=== PATIENT | male | born 1945 | race Caucasian/White ===

== ENCOUNTER 2019-05-20 15:22 | Inpatient (IN) | payer OTHER ==
[2019-05-20] MEDS ORDERED: HYDROmorphone 1 MG/ML 1 ML SYRINGE IVP STA (15:47)
[2019-05-20] MEDS ORDERED: SODIUM CHLORIDE 0.9% 1,000 ML IV ONE (16:01)
[2019-05-20] MEDS ORDERED: PIPERACILLIN-TAZOBACTAM 3.375 GM in SODIUM CHLORIDE 0.9% 100 ML IVPB STA (16:10)
[2019-05-20] MEDS ORDERED: NALOXONE 0.4 MG/ML 1 ML VIAL IV PRN (16:12)
[2019-05-20] MEDS ORDERED: HYDROmorphone 0.5 MG/0.5 ML SYRINGE IVP PRN (16:12)
[2019-05-20] MEDS ORDERED: ONDANSETRON 4 MG/2 ML VIAL IVP PRN (16:12)
--- NOTE | 2019-05-20 16:12 | ED ---
Abdominal Pain HPI - General Source: patient, RN notes reviewed Mode of arrival: ambulatory Limitations: no limitations <Danny Camacho - Last Filed: 05/20/19 16:20> <Jesu Baker - Last Filed: 05/20/19 16:26> - General Chief Complaint: Abdominal Pain Stated Complaint: abdominal pain Time Seen by Provider: 05/20/19 15:42 - History of Present Illness Initial Comments: 73-year-old male presents emergency department as a transfer for [facility]. Patient states that he woke up around 2 AM with severe pain. Patient states this started after eating some cookies. Patient states the pain is in epigastric and right upper quadrant. Patient has CT which showed questionable appendicitis. Patient also had some evidence of gallstones. Patient was sent down here for further evaluation, surgical evaluation. Patient reports no fevers or chills no back pain this time. Patient has a history of bowel resecti on but states he cannot remember the surgeon's name does not currently see the surgeon. Patient denies any dysuria, hematuria, diarrhea constipation. (Danny Camacho) - Related Data Allergies Allergy/AdvReac Type Severity Reaction Status Date / Time nitroglycerin Allergy Unknown Verified 05/20/19 15:39 Review of Systems ROS Other: All systems not noted in ROS Statement are negative. <Danny Camacho - Last Filed: 05/20/19 16:20> ROS Other: All systems not noted in ROS Statement are negative. <Jesu Baker - Last Filed: 05/20/19 16:26> ROS Statement: Those systems with pertinent positive or pertinent negative responses have been documented in the HPI. Past Medical History Past Medical History: GERD/Reflux, Hyperlipidemia, Hypertension History of Any Multi-Drug Resistant Organisms: Unobtainable Additional Past Surgical History / Comment(s): divertculitis sx Past Psychological History: No Psychological Hx Reported Smoking Status: Former smoker Past Alcohol Use History: None Reported Past Drug Use History: None Reported <Danny Camacho - Last Filed: 05/20/19 16:20> General Exam Limitations: no limitations General appearance: alert, in no apparent distress Neck exam: Present: normal inspection. Absent: tenderness, meningismus, lymphadenopathy Respiratory exam: Present: normal lung sounds bilaterally. Absent: respiratory distress, wheezes, rales, rhonchi, stridor Cardiovascular Exam: Present: regular rate, normal rhythm, normal heart sounds. Absent: systolic murmur, diastolic murmur, rubs, gallop, clicks GI/Abdominal exam: Present: soft, tenderness (Moderate right upper quadrant epigastric tenderness), normal bowel sounds. Absent: distended, guarding, rebound, rigid Extremities exam: Present: other (Pedal pulses equal bilaterally equal color equal strength the lower extremities) <Danny Camacho - Last Filed: 05/20/19 16:20> Course <Jesu Baker - Last Filed: 05/20/19 16:26> Vital Signs 05/20/19 15:31 Temperature 98.0 F Pulse Rate 89 Respiratory 18 Rate Blood Pressure 173/103 O2 Sat by Pulse 100 Oximetry - Reevaluation(s) Reevaluation #1: 05/20/19 16:26 PA supervision: I proceeded [id number] evaluation the patient did present from [facility] with complaints of abdominal pain initially thought to be appendicitis patient however has tenderness palpation of the right upper quadrant and midepigastric region. Patient will be admitted I did discuss case Dr. Galloway. Ultrasound be ordered antibiotics started. Clinically does appear to be more gallbladder related. I did review the material presented from the sending hospital. (Jesu Baker) Medical Decision Making <Danny Camacho - Last Filed: 05/20/19 16:20> - Medical Decision Making Case discussed with Dr. Galloway who recommends repeat labs, ultrasound, antibiotics and admission at this time (Danny Camacho) Disposition <Danny Camacho - Last Filed: 05/20/19 16:20> <Jesu Baker - Last Filed: 05/20/19 16:26> Clinical Impression: Abdominal pain, Cholecystitis, Cholelithiases Disposition: ADMITTED IP TO THIS [facility] Condition: Fair Referrals: Clint Chan, PAC [REFERRING] - 1-2 days
[2019-05-20] MEDS: SODIUM CHLORIDE 0.9% 1,000 ML IV SCH (16:45)
[2019-05-20 16:50] LABS: Basophils % (A) 0 %; Eosinophils # (A) 0.1 k/uL (0-0.7); Eosinophils % (A) 1 %; HGB 15.5 gm/dL (13.0-17.5); Lymphocytes # (A) 0.9 k/uL (1.0-4.8); Lymphocytes % (A) 9 %; MCH 30.9 pg (25.0-35.0); MCHC 34.5 g/dL (31.0-37.0); MCV 89.6 fL (80.0-100.0); Mean Platelet Volume 7.3; Monocytes # (A) 0.7 k/uL (0-1.0); Monocytes % (A) 6 %; Neutrophils # (A) 8.8 k/uL (1.3-7.7); Neutrophils % (A) 82 %; Platelet Count 183 k/uL (150-450); RBC 5.02 m/uL (4.30-5.90); RDW 13.4 % (11.5-15.5); WBC 10.6 k/uL (3.8-10.6)
--- NOTE | 2019-05-20 16:53 | US ---
EXAMINATION TYPE: US gallbladder DATE OF EXAM: 05/20/2019 COMPARISON: NONE CLINICAL HISTORY: pain. Pt states pain, N&V EXAM MEASUREMENTS: Liver Length: 14.7 cm Gallbladder Wall: 0.3 cm CBD: 0.5 cm Right Kidney: 13.2 x 6.1 x 5.7 cm Pancreas: Obscured by bowel gas Liver: CYst right inferior lobe= 0.9 x 0.6 cm Gallbladder: Distended, multiple gallstones, wall thickness upper limits of normal Evidence for sonographic Hung's sign: No CBD: wnl Right Kidney: Cyst lower pole= 6.4 x 5.8 x 5.5 cm IMPRESSION: Numerous gallstones. No dilated ducts. Small hepatic cyst. Right renal cortical cyst.
[2019-05-20 16:56] LABS: ALT 27 U/L (4-49); AST 39 U/L (17-59); African American GFR (CKD) >90 (>60 ml/min/1.73 sqM); Albumin 4.7 g/dL (3.5-5.0); Alkaline Phosphatase 99 U/L (38-126); Anion Gap 10 mmol/L; Blood Urea Nitrogen 14 mg/dL (9-20); Calcium 9.3 mg/dL (8.4-10.2); Carbon Dioxide 24 mmol/L (22-30); Chloride 100 mmol/L (98-107); Glucose 128 mg/dL (74-99); Non-African American GFR(CKD) >90 (>60 ml/min/1.73 sqM); Potassium 4.1 mmol/L (3.5-5.1); Sodium 134 mmol/L (137-145); Total Protein 7.4 g/dL (6.3-8.2)
[2019-05-20] MEDS: FLUTICASONE 50MCG/SPRAY NASAL 16GM EA NOSTRIL PRN (18:28)
[2019-05-20] MEDS: HYDROmorphone 1 MG/ML 1 ML SYRINGE IVP PRN ×2 (18:42→22:09)
[2019-05-20] MEDS: PIPERACILLIN-TAZOBACTAM 3.375 GM in SODIUM CHLORIDE 0.9% 100 ML IVPB SCH (23:26)
[2019-05-21] MEDS: HYDROmorphone 1 MG/ML 1 ML SYRINGE IVP PRN ×6 (01:06→21:12)
[2019-05-21] MEDS: FLUTICASONE 50MCG/SPRAY NASAL 16GM EA NOSTRIL PRN (07:40)
[2019-05-21] MEDS: PIPERACILLIN-TAZOBACTAM 3.375 GM in SODIUM CHLORIDE 0.9% 100 ML IVPB SCH ×2 (07:40→16:49)
[2019-05-21] MEDS: PANTOPRAZOLE 40 MG/10 ML VIAL IV SCH (07:40)
[2019-05-21] MEDS ORDERED: ONDANSETRON 4 MG/2 ML VIAL IVP PRN (08:12)
[2019-05-21] MEDS ORDERED: ACETAMINOPHEN TAB 325 MG TAB PO PRN (08:14)
[2019-05-21] MEDS: HEPARIN SODIUM,PORCINE 5,000 UNIT/ML 1 ML VIAL SQ SCH ×2 (08:59→21:11)
--- NOTE | 2019-05-21 09:05 | P.GSHP ---
History of Present Illness H&P Date: 05/21/19 CHIEF COMPLAINT: Abdominal pain HISTORY OF PRESENT ILLNESS: 73 -year-old male who was transferred to [facility] from [facility] secondary to abdominal pain. Patient reports epigastric pain that began Monday morning at 2am. He states the pain radiated to his back and shoulder. Denies nausea or vomiting. Denies diarrhea or constipation. Denies history of gallbladder disease in the past. PAST MEDICAL HISTORY: See list. PAST SURGICAL HISTORY: See list. SOCIAL HISTORY: No illicit drug use. REVIEW OF SYSTEMS: CONSTITUTIONAL: Denies fever or chills. HEENT: Denies blurred vision, vision changes, or eye pain. Denies hemoptysis CARDIOVASCULAR: Denies chest pain or pressure. RESPIRATORY: No shortness of breath. GASTROINTESTINAL: Refer to HPI for pertinent findings HEMATOLOGIC: Denies bleeding disorders. GENITOURINARY: Denies any blood in urine. SKIN: Denies pruitis. Denies rash. PHYSICAL EXAM: VITAL SIGNS: Reviewed. GENERAL: Well-developed in no acute distress. HEENT: No sclera icterus. Extraocular movements grossly intact. Moist buccal mucosa. Head is atraumatic, normocephalic. ABDOMEN: Soft. Nondistended. Nontender. Old surgical scar to abdomen. NEUROLOGIC: Alert and oriented. Cranial nerves II through XII grossly intact. LABORATORY DATA: WBC 10.6. Hemoglobin 15.5. Platelet count 183. IMAGING: Gallbladder ultrasound: Numerous gallstones. No dilated ducts. Small hepatic cyst. Distended gallbladder. Wall thickness upper limits of normal. ASSESSMENT: 1. Abdominal pain 2. Cholelithiasis PLAN: NPO. IV fluids. IV antibiotics. Consult Dr. Alfaro for medical management. Contreras lópez to undergo laparoscopic cholecystectomy today with Dr. Galloway Nurse practitioner note has been reviewed by physician. Signing provider agrees with the documented findings, assessment, and plan of care. 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 Past Anesthesia/Blood Transfusion Reactions: No Reported Reaction Past Psychological History: No Psychological Hx Reported Smoking Status: Former smoker Past Alcohol Use History: Rare Past Drug Use History: None Reported - Past Family History Father Family Medical History: No Reported History Mother Family Medical History: No Reported History Medications and Allergies Home Medications Medication Instructions Recorded Confirmed Type Atorvastatin [Lipitor] 80 mg PO HS 05/20/19 05/20/19 History Diltiazem HCl [Diltiazem HCl 24Hr 180 mg PO DAILY 05/20/19 05/20/19 History ER] Fluticasone Nasal [place] [Flonase 2 spr EA NOSTRIL DAILY PRN 05/20/19 05/20/19 History Nasal [place]] Hydrochlorothiazide [Hydrodiuril] 25 mg PO DAILY 05/20/19 05/20/19 History Omeprazole 20 mg PO BID 05/20/19 05/20/19 History metFORMIN HCL 500 mg PO DAILY 05/20/19 05/20/19 History traZODone HCL 100 mg PO HS 05/20/19 05/20/19 History Allergies Allergy/AdvReac Type Severity Reaction Status Date / Time nitroglycerin Allergy Unknown Verified 05/20/19 16:56 Surgical - Exam Vital Signs Temp Pulse Resp BP Pulse Ox 98.0 F 89 18 173/103 100 05/20/19 15:31 05/20/19 15:31 05/20/19 15:31 05/20/19 15:31 05/20/19 15:31 Results - Labs 05/20/19 16:40 05/20/19 16:40 Abnormal Lab Results - Last 24 Hours (Table) 05/20/19 05/20/19 Range/Units 16:40 16:40 Neutrophils # 8.8 H (1.3-7.7) k/uL Lymphocytes # 0.9 L (1.0-4.8) k/uL Sodium 134 L (137-145) mmol/L Creatinine 0.61 L (0.66-1.25) mg/dL Glucose 128 H (74-99) mg/dL Diabetes panel 05/20/19 Range/Units 16:40 Sodium 134 L (137-145) mmol/L Potassium 4.1 (3.5-5.1) mmol/L Chloride 100 (98-107) mmol/L Carbon Dioxide 24 (22-30) mmol/L BUN 14 (9-20) mg/dL Creatinine 0.61 L (0.66-1.25) mg/dL Glucose 128 H (74-99) mg/dL Calcium 9.3 (8.4-10.2) mg/dL AST 39 (17-59) U/L ALT 27 (4-49) U/L Alkaline Phosphatase 99 (38-126) U/L Total Protein 7.4 (6.3-8.2) g/dL Albumin 4.7 (3.5-5.0) g/dL Calcium panel 05/20/19 Range/Units 16:40 Calcium 9.3 (8.4-10.2) mg/dL Albumin 4.7 (3.5-5.0) g/dL Pituitary panel 05/20/19 Range/Units 16:40 Sodium 134 L (137-145) mmol/L Potassium 4.1 (3.5-5.1) mmol/L Chloride 100 (98-107) mmol/L Carbon Dioxide 24 (22-30) mmol/L BUN 14 (9-20) mg/dL Creatinine 0.61 L (0.66-1.25) mg/dL Glucose 128 H (74-99) mg/dL Calcium 9.3 (8.4-10.2) mg/dL Adrenal panel 05/20/19 Range/Units 16:40 Sodium 134 L (137-145) mmol/L Potassium 4.1 (3.5-5.1) mmol/L Chloride 100 (98-107) mmol/L Carbon Dioxide 24 (22-30) mmol/L BUN 14 (9-20) mg/dL Creatinine 0.61 L (0.66-1.25) mg/dL Glucose 128 H (74-99) mg/dL Calcium 9.3 (8.4-10.2) mg/dL Total Bilirubin 1.0 (0.2-1.3) mg/dL AST 39 (17-59) U/L ALT 27 (4-49) U/L Alkaline Phosphatase 99 (38-126) U/L Total Protein 7.4 (6.3-8.2) g/dL Albumin 4.7 (3.5-5.0) g/dL
[2019-05-21] MEDS: SODIUM CHLORIDE 0.9% 1,000 ML IV SCH (11:21)
[2019-05-21] MEDS ORDERED: FLUTICASONE 50MCG/SPRAY NASAL 16GM EA NOSTRIL PRN (13:30)
--- NOTE | 2019-05-21 13:33 | P.CONS ---
History of Present Illness - Reason for Consult recommendations regarding the antihypertensive and diabetic medications - History of Present Illness patient is admitted for cholelithiasis. Patient will undergo cholecystectomy tomorrow. Patient is transferred from [facility] patient was complaining of right upper quadrant abdominal pain which completely resolved at this time. Patient had a low-grade fever for which patient is Zosyn patient denied any cough patient denied any dysuria or urinary increased urinary frequency.she is bit hyponatremic patient also takeshydrochlorothiazide for blood pressure at home.patient denied nausea vomiting. Review of Systems REVIEW OF SYSTEMS: CONSTITUTIONAL: No fever, no malaise, no fatigue. HEENT: No recent visual problems or hearing problems. Denied any sore throat. CARDIOVASCULAR: No chest pain, orthopnea, PND, no palpitations, no syncope. PULMONARY: No shortness of breath, no cough, no hemoptysis. GASTROINTESTINAL: No diarrhea, no nausea, no vomiting. NEUROLOGICAL: No headaches, no weakness, no numbness. HEMATOLOGICAL: Denies any bleeding or petechiae. GENITOURINARY: Denies any burning micturition, frequency, or urgency. MUSCULOSKELETAL/RHEUMATOLOGICAL: Denies any joint pain, swelling, or any muscle pain. ENDOCRINE: Denies any polyuria or polydipsia. The rest of the 14-point review of systems is negative. 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 Past Anesthesia/Blood Transfusion Reactions: No Reported Reaction Past Psychological History: No Psychological Hx Reported Smoking Status: Former smoker Past Alcohol Use History: Rare Past Drug Use History: None Reported - Past Family History Father Family Medical History: No Reported History Mother Family Medical History: No Reported History Medications and Allergies Home Medications Medication Instructions Recorded Confirmed Type Atorvastatin [Lipitor] 80 mg PO HS 05/20/19 05/20/19 History Diltiazem HCl [Diltiazem HCl 24Hr 180 mg PO DAILY 05/20/19 05/20/19 History ER] Fluticasone Nasal [place] [Flonase 2 spr EA NOSTRIL DAILY PRN 05/20/19 05/20/19 History Nasal [place]] Hydrochlorothiazide [Hydrodiuril] 25 mg PO DAILY 05/20/19 05/20/19 History Omeprazole 20 mg PO BID 05/20/19 05/20/19 History metFORMIN HCL 500 mg PO DAILY 05/20/19 05/20/19 History traZODone HCL 100 mg PO HS 05/20/19 05/20/19 History Allergies Allergy/AdvReac Type Severity Reaction Status Date / Time nitroglycerin Allergy Unknown Verified 05/20/19 16:56 Physical Exam Vitals: Vital Signs Temp Pulse Pulse Resp BP BP Pulse Ox 05/21/19 11:52 100.1 F H 96 17 147/82 94 L 05/21/19 04:54 99.3 F 110 H 16 142/74 94 L 05/20/19 20:24 99.1 F 96 18 152/84 96 05/20/19 17:22 98.4 F 89 18 164/84 96 05/20/19 16:30 84 18 161/96 93 L 05/20/19 15:31 98.0 F 89 18 173/103 100 Intake and Output 05/20/19 05/21/19 05/21/19 22:59 06:59 14:59 Intake Total 300 400 360 Balance 300 400 360 Intake: Intake, IV Titration 300 400 Amount Piperacillin-Tazobactam 3 300 .375 gm In Sodium Chloride 0.9% 100 ml @ 200 mls/hr IVPB ONCE [facility] Rx#:[id number] Piperacillin-Tazobactam 3 100 .375 gm In Sodium Chloride 0.9% 100 ml @ 25 mls/hr IVPB Q8HR [facility] Rx# :[id number] Sodium Chloride 0.9% 1, 300 000 ml @ 75 mls/hr IV . [id number] [facility] Rx#:[id number] Oral 360 Other: Voiding Method Toilet Weight 86.183 kg PHYSICAL EXAMINATION: GENERAL: The patient is alert and oriented x3, not in any acute distress. Well developed, well nourished. HEENT: Pupils are round and equally reacting to light. EOMI. No scleral icterus. No conjunctival pallor. Normocephalic, atraumatic. No pharyngeal erythema. No thyromegaly. CARDIOVASCULAR: S1 and S2 present. No murmurs, rubs, or gallops. PULMONARY: Chest is clear to auscultation, no wheezing or crackles. ABDOMEN: Soft, nontender, nondistended, normoactive bowel sounds. No palpable organomegaly. MUSCULOSKELETAL: No joint swelling or deformity. EXTREMITIES: No cyanosis, clubbing, or pedal edema. NEUROLOGICAL: Gross neurological examination did not reveal any focal deficits. SKIN: No rashes. Results CBC & Chem 7: 05/20/19 16:40 05/20/19 16:40 Labs: Abnormal Lab Results - Last 24 Hours (Table) 05/20/19 05/20/19 Range/Units 16:40 16:40 Neutrophils # 8.8 H (1.3-7.7) k/uL Lymphocytes # 0.9 L (1.0-4.8) k/uL Sodium 134 L (137-145) mmol/L Creatinine 0.61 L (0.66-1.25) mg/dL Glucose 128 H (74-99) mg/dL Assessment and Plan Plan: -cholelithiasis: Patient will undergo cholecystotomy tomorrow -Fever probably related to gallbladder disease patient is already on Zosyn which will be continued patient doesn't have any UTI or pneumonia symptoms at this time -gastroesophageal reflux disease -Hypertension hold off on hydrochlorothiazide because of hyponatremia and to prevent perioperative protection Cardizem resumed.
[2019-05-21] MEDS: DILTIAZEM CD 180 MG CAP.ER.24H PO SCH (14:39)
[2019-05-21] MEDS: ATORVASTATIN 80 MG TAB PO SCH (21:11)
[2019-05-21] MEDS: traZODone HCL 100 MG TAB PO SCH (21:11)
[2019-05-22] MEDS: SODIUM CHLORIDE 0.9% 1,000 ML IV SCH ×3 (00:08→16:18)
[2019-05-22] MEDS: PIPERACILLIN-TAZOBACTAM 3.375 GM in SODIUM CHLORIDE 0.9% 100 ML IVPB SCH ×4 (00:11→23:07)
[2019-05-22] MEDS: HEPARIN SODIUM,PORCINE 5,000 UNIT/ML 1 ML VIAL SQ SCH ×2 (07:37→19:49)
[2019-05-22] MEDS: PANTOPRAZOLE 40 MG/10 ML VIAL IV SCH (07:59)
[2019-05-22] MEDS: HYDROmorphone 1 MG/ML 1 ML SYRINGE IVP PRN ×4 (07:59→22:18)
[2019-05-22] MEDS: DILTIAZEM CD 180 MG CAP.ER.24H PO SCH (08:00)
[2019-05-22] MEDS ORDERED: SODIUM CHLORIDE 0.9% 1,000 ML IV ONE (08:36)
[2019-05-22] MEDS ORDERED: HEPARIN SODIUM,PORCINE 5,000 UNIT/ML 1 ML VIAL SQ ONE (08:55)
[2019-05-22] MEDS ORDERED: PROPOFOL 10 MG/ML 20 ML VIAL IV ONE (09:21)
[2019-05-22] MEDS ORDERED: GLYCOPYRROLATE 0.2 MG/ML 2 ML VIAL ONE (09:21)
[2019-05-22] MEDS ORDERED: LIDOCAINE 1% INJ 10MG/ML (20 ML MDV) ONE (09:21)
[2019-05-22] MEDS ORDERED: ROCURONIUM BROMIDE 10 MG/ML 5 ML VIAL IV ONE (09:21)
[2019-05-22] MEDS ORDERED: SUCCINYLCHOLINE CHLORIDE 100 MG/5 ML SYR IV ONE (09:21)
[2019-05-22] MEDS ORDERED: fentaNYL (PF) 50 MCG/ML 2 ML AMP ONE (09:21)
[2019-05-22] MEDS ORDERED: PHENYLEPHRINE-0.9% NACL SYG 1 MG/10 ML SYRINGE ONE (09:21)
[2019-05-22] MEDS ORDERED: NEOSTIGMINE 1 MG/ML 10 ML VIAL ONE (09:21)
[2019-05-22] MEDS ORDERED: MIDAZOLAM 2 MG/2 ML VIAL ONE (09:21)
[2019-05-22] MEDS ORDERED: BUPIVACAIN-EPI 0.25%-1:200,000 30 ML VIAL IJ ONE (09:59)
[2019-05-22] MEDS ORDERED: LACTATED RINGERS 1,000 ML IV ONE (10:18)
--- NOTE | 2019-05-22 10:42 | P.OP ---
Date of Procedure: 05/22/19 Preoperative Diagnosis: Cholecystitis Cholelithiasis Postoperative Diagnosis: Cholecystitis Cholelithiasis Procedure(s) Performed: Laparoscopic cholecystectomy Anesthesia: YAMILETH Surgeon: Ron Galloway Estimated Blood Loss (ml): 10 Pathology: other (5 gallbladder) Condition: stable Disposition: PACU Description of Procedure: The patient was placed on the operating table. The patient received a general endotracheal tube anesthesia. The patients abdomen was prepped and draped in the usual sterile fashion. Through an infraumbilical stab incision, the fascia of the anterior abdominal wall was grasped with a pair of Kochers and then the Veress needle was placed in the peritoneal cavity. Position of the Veress needle was confirmed with positive drop test. The abdomen was then insufflated. After adequate insufflation, the 10 mm trocar was placed in the p eritoneal cavity. Following this the laparoscope was placed in the peritoneal cavity. The patient was placed in the head-up, right side up position and then a 5 mm trocar was placed in the right lateral and right subcostal position under direct visualization. A 8 mm trocar was placed in the epigastric position. The gallbladder was grasped in the fundus and infundibulum. Traction on the ga llbladder was placed in the lateral and the cephalad positions. The triangle of Calot was visualized.. The cystic duct was bluntly dissected until the union of the cystic duct and common bile duct was seen. A critical view of safety was achieved. The cystic duct was then divided and sealed with the Harmonic scissors. A PDS Endoloop was then placed throughout the cystic duct stump. The cystic artery divided and sealed with the Harmonic scissors. The gallbladder was then removed from the liver bed using Harmonic scissors. The gallbladder was then extracted through the epigastric port site. Operative field was checked for any bleeding spots and Harmonic scissors was used to coagulate the liver bed. The abdomen was irrigated. The trocars were removed. The skin was closed using interrupted 3-0 Vicryl suture. Dermabond dressing were applied. The patient tolerated the procedure well.
--- NOTE | 2019-05-22 11:04 | P.PN ---
Subjective Progress Note Date: 05/22/19 Principal diagnosis: patient is admitted for cholelithiasis. Patient will undergo cholecystectomy tomorrow. Patient is transferred from [facility] patient was complaining of right upper quadrant abdominal pain which completely resolved at this time. Patient had a low-grade fever for which patient is Zosyn patient denied any cough patient denied any dysuria or urinary increased urinary frequency.she is bit hyponatremic patient also takes hydrochlorothiazide for blood pressure at home.patient denied nausea vomiting. We were consulted for recommendations regarding antihypertensives and diabetic medications. 05/22/2019 This is a 73-year-old male that was recently admitted for cholelithiasis. Patient is scheduled to undergo cholecystectomy with Dr. Galloway today. No acute overnight issues. Will await report. Currently no reports of chest pain, shortness of breath, or palpitations. Patient is afebrile. No reports of nausea or vomiting and patient is nothing by mouth for the procedure. Will continue to follow along with surgery. Objective - Vital Signs Vital signs: Vital Signs Temp 97.1 F L 05/22/19 10:39 Pulse 91 05/22/19 10:45 Resp 16 05/22/19 10:45 BP 136/77 05/22/19 10:45 Pulse Ox 95 05/22/19 10:45 Intake & Output 05/21/19 05/22/19 05/22/19 18:59 06:59 18:59 Intake Total 910 900 600 Output Total 5 Balance 910 900 595 Intake: IV 600 Intake, IV Titration 550 900 Amount Piperacillin-Tazobactam 3 100 150 .375 gm In Sodium Chloride 0.9% 100 ml @ 25 mls/hr IVPB Q8HR [facility] Rx# :[id number] Sodium Chloride 0.9% 1, 450 750 000 ml @ 75 mls/hr IV . [id number] Rx#:[id number] Oral 360 Output: Estimated Blood Loss 5 Other: Voiding Method Toilet Toilet # Voids 5 - Exam GENERAL: The patient is alert and oriented x3, not in any acute distress. Well developed, well nourished. HEENT: Pupils are round and equally reacting to light. EOMI. No scleral icterus. No conjunctival pallor. Normocephalic, atraumatic. No pharyngeal erythema. No thyromegaly. CARDIOVASCULAR: S1 and S2 present. No murmurs, rubs, or gallops. PULMONARY: Chest is clear to auscultation, no wheezing or crackles. ABDOMEN: Soft, nontender, nondistended, normoactive bowel sounds. No palpable organomegaly. MUSCULOSKELETAL: No joint swelling or deformity. EXTREMITIES: No cyanosis, clubbing, or pedal edema. NEUROLOGICAL: Gross neurological examination did not reveal any focal deficits. SKIN: No rashes. - Labs CBC & Chem 7: 05/20/19 16:40 05/20/19 16:40 Labs: Microbiology - Last 24 Hours (Table) 05/20/19 16:40 Blood Culture - Preliminary Blood No Growth after 24 hours Assessment and Plan Assessment: -cholelithiasis: Patient scheduled to undergo cholecystectomy this morning -Fever probably related to gallbladder disease patient is already on Zosyn which will be continued patient doesn't have any UTI or pneumonia symptoms at this time. Patient is afebrile today. -gastroesophageal reflux disease -Hypertension: hold off on hydrochlorothiazide because of hyponatremia and to prevent perioperative hypotension. Cardizem resumed. Will monitor vital signs and labs closely.
[2019-05-22] MEDS ORDERED: HYDROmorphone 0.5 MG/0.5 ML SYRINGE IVP ONE (11:24)
[2019-05-22] MEDS: traZODone HCL 100 MG TAB PO SCH (19:48)
[2019-05-22] MEDS: ATORVASTATIN 80 MG TAB PO SCH (19:48)
[2019-05-23] MEDS: PANTOPRAZOLE 40 MG/10 ML VIAL IV SCH (09:16)
[2019-05-23] MEDS: HEPARIN SODIUM,PORCINE 5,000 UNIT/ML 1 ML VIAL SQ SCH (09:17)
[2019-05-23] MEDS: PIPERACILLIN-TAZOBACTAM 3.375 GM in SODIUM CHLORIDE 0.9% 100 ML IVPB SCH (09:17)
[2019-05-23] MEDS: DILTIAZEM CD 180 MG CAP.ER.24H PO SCH (09:17)
[2019-05-23 09:34] LABS: Basophils % (A) 0 %; Eosinophils # (A) 0.1 k/uL (0-0.7); Eosinophils % (A) 1 %; HCT 40.1 % (39.0-53.0); HGB 13.9 gm/dL (13.0-17.5); Lymphocytes # (A) 0.9 k/uL (1.0-4.8); Lymphocytes % (A) 9 %; MCH 31.6 pg (25.0-35.0); MCHC 34.7 g/dL (31.0-37.0); MCV 91.2 fL (80.0-100.0); Mean Platelet Volume 7.7; Monocytes # (A) 0.8 k/uL (0-1.0); Monocytes % (A) 8 %; Neutrophils # (A) 7.4 k/uL (1.3-7.7); Neutrophils % (A) 79 %; Platelet Count 143 k/uL (150-450); RBC 4.39 m/uL (4.30-5.90); RDW 13.3 % (11.5-15.5); WBC 9.4 k/uL (3.8-10.6)
[2019-05-23 09:51] LABS: African American GFR (CKD) >90 (>60 ml/min/1.73 sqM); Anion Gap 6 mmol/L; Blood Urea Nitrogen 12 mg/dL (9-20); Calcium 8.1 mg/dL (8.4-10.2); Carbon Dioxide 26 mmol/L (22-30); Chloride 101 mmol/L (98-107); Glucose 154 mg/dL (74-99); Non-African American GFR(CKD) 90 (>60 ml/min/1.73 sqM); Potassium 3.5 mmol/L (3.5-5.1); Sodium 133 mmol/L (137-145)
--- NOTE | 2019-05-23 10:17 | P.DS ---
Providers Date of admission: 05/22/19 08:16 Expected date of discharge: 05/23/19 Attending physician: Ron Galloway Consults: 05/21/19 08:11 Consult Physician Routine Consulting Provider: Dheeraj Alfaro Consult Reason/Comments: medical management Do you want consulting provider notified?: Yes Primary care physician: [facility] Course: 73 -year-old male who was transferred to [facility] from [facility] secondary to abdominal pain. Patient reports epigastric pain that began Monday morning at 2am. He states the pain radiated to his back and shoulder. Denies nausea or vomiting. Denies diarrhea or constipation. Denies history of gallbladder disease in the past. Gallbladder ultrasound: Numerous gallstones. No dilated ducts. Small hepatic cyst. Distended gallbladder. Wall thickness upper limits of normal. Patient underwent laparoscopic cholecystectomy with Dr. Galloway on 05/22/2019. Patient is doing well postoperatively without any immediate complications. He is tolerating diet without nausea or vomiting. Pain is controlled on oral medications. He is stable for discharge home today. Please see EMR for further Hospital course details. Discharge Diagnosis: 1. Abdominal pain 2. Cholelithiasis 3. Acute cholecystitis Nurse practitioner note has been reviewed by physician. Signing provider agrees with the documented findings, assessment, and plan of care. Patient Condition at Discharge: Stable Plan - Discharge Summary Discharge Rx Participant: Yes New Discharge Prescriptions: New Hydrocodone/Acetaminophen [[place] 5-325] 1 tab PO Q6HR PRN #10 tab PRN Reason: Pain No Action traZODone HCL 100 mg PO HS Omeprazole 20 mg PO BID metFORMIN HCL 500 mg PO DAILY Hydrochlorothiazide [Hydrodiuril] 25 mg PO DAILY Fluticasone Nasal [place] [Flonase Nasal [place]] 2 spr EA NOSTRIL DAILY PRN PRN Reason: Allergy Symptoms Diltiazem HCl [Diltiazem HCl 24Hr ER] 180 mg PO DAILY Atorvastatin [Lipitor] 80 mg PO HS Discharge Medication List Atorvastatin [Lipitor] 80 mg PO HS 05/20/19 [History] Diltiazem HCl [Diltiazem HCl 24Hr ER] 180 mg PO DAILY 05/20/19 [History] Fluticasone Nasal [place] [Flonase Nasal [place]] 2 spr EA NOSTRIL DAILY PRN 05/20/19 [History] Hydrochlorothiazide [Hydrodiuril] 25 mg PO DAILY 05/20/19 [History] Omeprazole 20 mg PO BID 05/20/19 [History] metFORMIN HCL 500 mg PO DAILY 05/20/19 [History] traZODone HCL 100 mg PO HS 05/20/19 [History] Hydrocodone/Acetaminophen [[place] 5-325] 1 tab PO Q6HR PRN #10 tab 05/22/19 [Rx] Follow up Appointment(s)/Referral(s): Clint Chan PAC [REFERRING] - 1-2 days Ron Galloway MD [STAFF PHYSICIAN] - 1 Week Activity/Diet/Wound Care/Special Instructions: No driving while taking [place] No lifting over 10 pounds You may shower. No soaking or tub baths Very light activity until you are reevaluated at your follow up appointment with your surgeon
[2019-05-23 11:29] VITALS: BP 156/77; PULSE 60; RESP 18; TEMP 98.3
--- NOTE | 2019-05-23 12:54 | P.PN ---
Subjective Progress Note Date: 05/23/19 Principal diagnosis: patient is admitted for cholelithiasis. Patient will undergo cholecystectomy tomorrow. Patient is transferred from [facility] patient was complaining of right upper quadrant abdominal pain which completely resolved at this time. Patient had a low-grade fever for which patient is Zosyn patient denied any cough patient denied any dysuria or urinary increased urinary frequency.she is bit hyponatremic patient also takes hydrochlorothiazide for blood pressure at home.patient denied nausea vomiting. We were consulted for recommendations regarding antihypertensives and diabetic medications. 05/22/2019 This is a 73-year-old male that was recently admitted for cholelithiasis. Patient is scheduled to undergo cholecystectomy with Dr. Galloway today. No acute overnight issues. Will await report. Currently no reports of chest pain, shortness of breath, or palpitations. Patient is afebrile. No reports of nausea or vomiting and patient is nothing by mouth for the procedure. Will continue to follow along with surgery. 05/23/2019 Patient is seen and evaluated and follow-up today status post cholecystectomy yesterday. No acute overnight issues. Repeat labs within normal limits today. Patient Is tolerating diet with no reports of abdominal pain, nausea, vomiting, or discomfort. Patient has remained afebrile. No reports of chest pain, shortness of breath, or palpitations. Patient was on oxygen status post surgery and has been weaned to room air as he does not normally wear oxygen. Discussed with the patient about continuing to use incentive spirometer at least 10 times every hour while awake in the outpatient setting. Patient states he is being discharged today. Will continue to follow with surgery during hospitalization. Objective - Vital Signs Vital signs: Vital Signs Temp 98.3 F 05/23/19 11:19 Pulse 60 05/23/19 11:19 Resp 18 05/23/19 11:19 BP 156/77 05/23/19 11:19 Pulse Ox 93 L 05/23/19 11:19 Intake & Output 05/22/19 05/23/19 05/23/19 18:59 06:59 18:59 Intake Total 1500 Output Total 5 Balance 1495 Intake: IV 800 Intake, IV Titration 700 Amount Piperacillin-Tazobactam 3 100 .375 gm In Sodium Chloride 0.9% 100 ml @ 25 mls/hr IVPB Q8HR [facility] Rx# :[id number] Sodium Chloride 0.9% 1, 600 000 ml @ 75 mls/hr IV . [id number] [facility] Rx#:[id number] Output: Estimated Blood Loss 5 Other: Voiding Method Toilet Toilet # Voids 5 2 - Exam GENERAL: The patient is alert and oriented x3, not in any acute distress. Well developed, well nourished. HEENT: Pupils are round and equally reacting to light. EOMI. No scleral icterus. No conjunctival pallor. Normocephalic, atraumatic. No pharyngeal erythema. No thyromegaly. CARDIOVASCULAR: S1 and S2 present. No murmurs, rubs, or gallops. PULMONARY: Chest is clear to auscultation, no wheezing or crackles. ABDOMEN: Soft, nontender, nondistended, normoactive bowel sounds. No palpable organomegaly. Status post cholecystectomy small incisions are dry and intact with Dermabond noted. MUSCULOSKELETAL: No joint swelling or deformity. EXTREMITIES: No cyanosis, clubbing, or pedal edema. NEUROLOGICAL: Gross neurological examination did not reveal any focal deficits. SKIN: No rashes. - Labs CBC & Chem 7: 05/23/19 09:09 05/23/19 09:09 Labs: Abnormal Lab Results - Last 24 Hours (Table) 05/23/19 05/23/19 Range/Units 09:09 09:09 Plt Count 143 L (150-450) k/uL Lymphocytes # 0.9 L (1.0-4.8) k/uL Sodium 133 L (137-145) mmol/L Glucose 154 H (74-99) mg/dL Calcium 8.1 L (8.4-10.2) mg/dL Microbiology - Last 24 Hours (Table) 05/20/19 16:40 Blood Culture - Preliminary Blood No Growth after 48 hours Assessment and Plan Assessment: -cholelithiasis: Status post cholecystectomy postop day #1. Patient tolerating diet and passing gas. -Fever probably related to gallbladder disease. Patient was given Zosyn. patient doesn't have any UTI or pneumonia symptoms at this time. Patient has remained afebrile over 24 hours. -gastroesophageal reflux disease -Hypertension: Patient to resume home medications. Repeat labs within normal limits. Plan: Repeat labs this morning within normal limits. Continue current medications, management, and symptomatic treatment. Patient has been up to the bathroom with no difficulty and is passing gas. He is tolerating diet with no increase in abdominal discomfort. Patient continues to use incentive spirometer and educated about using it 10 times every hour while awake even in the outpatient setting. Patient verbalized understanding. Patient will be resumed on home antihypertensive medications. To follow-up with surgery along with primary care provider in the outpatient setting. Patient states he is going home today and surgery has cleared the patient.
--- NOTE | 2019-05-27 13:22 | CDI ---
Documentation Clarification Form Date: 05/27/19 From: Marla Orosco CCS Phone: If you have a question about this query, please contact Tori Tong, Primary Therapist at [phone] between 8am and 5pm. Admit Date: 05/22/19 Discharge Date:05/23/19 Patient Name: Ruddy Tomas Visit Number: [id number] ATTENTION: The Clinical Documentation Specialists (CDI) and [facility] Coding Staff appreciate your assistance in clarifying documentation. Please respond to the clarification below the line at the bottom and electronically sign. The CDI & [facility] Coding staff will review the response and follow-up if needed. Please note: Queries are made part of the Legal Health Record. If you have any questions, please contact the author of this message via ITS. Dear Dr. Galloway, The final diagnosis of the pathology report states: Chronic active cholecystitis with transmural extension, mucosal erosion and cholelithiasis. Documentation states: Acute cholecystitis, Cholelithiasis Patient history/risk factors: GERD, Hepatic cyst, HTN Clinical Indicators: Fever, Epigastric pain Radiology: Numerous gallstones.No dilated ducts.Small hepatic cyst.Right renal cortical cyst. Treatment: Laparoscopic cholecystectomy In your professional opinion, do you agree with the pathology report specifying cholecystitis as chronic? Chronic cholecystitis Acute cholecystitis Acute/Chronic cholecystitis Other (please specify) Unable to determine Unable to determine MTDD
== END 2019-05-23 12:51 | disposition home or self-care (01) | DRG 418 ==
LOC: EC 15:22 → 5NMEDONC 16:25 → OBSVTOIN 05-22 08:16 → 5NMEDONC 05-22 20:19
PROVIDERS: ADMIT Surgery; ATTEND Surgery
PROC: 0FT44ZZ Resection of Gallbladder, Percutaneous Endoscopic Approach (ICD-10-PCS; principal; 2019-05-22 09:15)
DX: K80.00 Calculus of gallbladder with acute cholecystitis without obstruction (principal); E87.1 Hypo-osmolality and hyponatremia; K76.89 Other specified diseases of liver; K21.9 Gastro-esophageal reflux disease without esophagitis; I10 Essential (primary) hypertension; E78.5 Hyperlipidemia, unspecified; G89.29 Other chronic pain; M54.9 Dorsalgia, unspecified; Z79.899 Other long term (current) drug therapy; Z79.84 Long term (current) use of oral hypoglycemic drugs; Z87.891 Personal history of nicotine dependence; Z90.49 Acquired absence of other specified parts of digestive tract; Z88.8 Allergy status to other drugs, medicaments and biological substances
CPT/HCPCS: 76705; 80048; 80053; 83690; 85025; 87040; 88304; 96365; 96375; 99285

== ENCOUNTER → 2022-10-26 | Outpatient (CLI) | payer OTHER ==
--- NOTE | 2022-10-28 12:21 | MR ---
EXAMINATION TYPE: MR lumbar spine wo con DATE OF EXAM: 10/26/2022 COMPARISON: None HISTORY: Chronic lower back pain, RLE radiculopathy. CONTRAST: 0 mL intravenous Gadavist. TECHNIQUE: Multiplanar, multisequence images of the lumbar spine were acquired. FINDINGS: Cord terminates at the L2 level. Disc heights are preserved. Vertebral body heights are preserved. There is disc desiccation throughou t the lumbar spine. No spondylolisthesis is evident. L5-S1: There is minimal posterior central protrusion with anterior thecal sac compression. No AP spin al canal stenosis present. Neural foramen are patent. Mild facet degenerative change is present. L4-5: There is broad-based disc bulge with anterior thecal sac flattening. No AP spinal canal stenosi s is present. There is increased signal on T2-weighted sequences within the mid disc space compatible with an annular tear. Mild facet degenerative changes are present. L3-4: Mild right paracentral and right lateral disc bulge is present with minimal anterior thecal sac compression. This comes in close approximation with the exiting right L4 nerve roots. Correlate with radicular symptoms. Foramen appears patent. L2-3, L1-2, T12-L1: These levels appear normal without focal disc herniation significant disc bulge s unruly canal stenosis or neural foraminal stenosis. Large cyst is present on the inferior pole right kidney. IMPRESSION: 1. Annular tear L4-5 the disc. 2. Mild disc bulging present L3-4 through L5-S1 discussed above. 3. Correlate with right L4 radicular symptoms from minimal disc bulging at L3-4..
== END | disposition home or self-care (01) ==
LOC: RADMRIMAIN 10:47
DX: M51.16 Intervertebral disc disorders with radiculopathy, lumbar region (principal); M51.17 Intervertebral disc disorders with radiculopathy, lumbosacral region
CPT/HCPCS: 72148

== ENCOUNTER → 2023-12-21 | Outpatient (CLI) | payer OTHER ==
[2023-12-21 15:27] LABS: Basophils # (A) 0.06 X 10*3/uL (0.00-0.10); Basophils % (A) 0.9 %; Eosinophils # (A) 0.15 X 10*3/uL (0.04-0.35); Eosinophils % (A) 2.2 %; HCT 45.6 % (39.6-50.0); HGB 15.1 g/dL (13.0-17.0); Lymphocytes # (A) 1.44 X 10*3/uL (0.90-5.00); Lymphocytes % (A) 21.3 %; MCH 30.9 pg (27.0-32.0); MCHC 33.1 g/dL (32.0-37.0); MCV 93.3 FL (80.0-97.0); Mean Platelet Volume 9.9 FL (9.5-12.2); Monocytes # (A) 0.61 X 10*3/uL (0.20-1.00); NRBC Per 100 WBC 0 X 10*3/uL (0.00-0.01); Neutrophils # (A) 4.47 X 10*3/uL (1.80-7.70); Neutrophils % (A) 66.3 %; Platelet Count 199 X 10*3/uL (140-440); RBC 4.89 X 10*6/uL (4.40-5.60); RDW 13.2 % (11.5-14.5); WBC 6.75 X 10*3/uL (4.50-10.00)
[2023-12-21 15:37] LABS: Blood Urea Nitrogen 21.6 mg/dL (9.0-27.0); Calcium 9.4 mg/dL (8.7-10.3); Carbon Dioxide 25.9 mmol/L (21.6-31.8); Chloride 101 mmol/L (96-109); Glucose 164 mg/dL (70-110); Potassium 4.4 mmol/L (3.5-5.5); Sodium 139 mmol/L (135-145)
[2023-12-21 17:34] LABS: INR 1.06 sec (0.93-1.11); Prothrombin Time 11.4 sec (9.9-11.9)
== END | disposition home or self-care (01) ==
LOC: LABWHC1 09:44
PROVIDERS: ATTEND Orthopaedic Surgery
CPT/HCPCS: 36415; 80048; 85025; 85610; 86850; 86900; 86901; 87070; 93005

== ENCOUNTER → 2024-03-25 | Outpatient (CLI) | payer OTHER | END | disposition home or self-care (01) | LOC: LABPAT 10:58 | PROVIDERS: ATTEND Orthopaedic Surgery | DX: Z01.812 Encounter for preprocedural laboratory examination (principal); M16.11 Unilateral primary osteoarthritis, right hip; Z22.322 Carrier or suspected carrier of Methicillin resistant Staphylococcus aureus | CPT/HCPCS: 86850; 86900; 86901; 87070 ==

== ENCOUNTER 2024-04-04 08:15 | Day surgery (SDC) | payer OTHER ==
--- NOTE | 2024-04-04 00:39 | HP ---
HISTORY AND PHYSICAL DATE OF SURGERY: 04/04/2024. HISTORY OF PRESENT ILLNESS: Ruddy Tomas is a 78-year-old gentleman seen with symptomatic right hip osteoarthritis. We discussed options regarding treatment. He elected to proceed with direct anterior right total hip arthroplasty. Consent regarding the procedure obtained. Medical clearance was provided by Zahra Peralta NP. PAST MEDICAL HISTORY: Hypertension, hyperlipidemia, gastroesophageal reflux disease. PAST SURGICAL HISTORY: Noncontributory. DAILY MEDICATIONS: 1. Cardizem. 2. Hydrochlorothiazide. 3. Meloxicam. 4. Omeprazole. ALLERGIES: None. SOCIAL HISTORY: Denies tobacco use. PHYSICAL EVALUATION OF THE RIGHT HIP: He has limited range of motion with severe pain. Positive impingement sign. Straight- leg raise negative. Distal neurovascular exam is intact. IMAGING STUDIES: Radiographs of the right hip revealed severe osteoarthritic changes. IMPRESSION: 1. Right hip osteoarthritis. 2. Hypertension. 3. Hyperlipidemia. 4. Gastroesophageal reflux disease. PLAN: Direct anterior right total hip arthroplasty. MMODL / IJN: [id number] /
[~2024-04-04 08:15] MED LIST: TRANEXAMIC 1,000 MG/100ML-NACL 1,000 MG in SALINE 1 100ML.BAG IVPB PRN
[2024-04-04] MEDS ORDERED: LIDOCAINE 1% (10MG/ML) FOR IV START INTRADERMA PRN (08:38)
[2024-04-04] MEDS: IV FLUID CONTINUATION 1,000 ML IV ONE (08:45)
[2024-04-04 09:12] LABS: Glucose,Whole Blood 153 mg/dL (70-110)
[2024-04-04] MEDS: LACTATED RINGERS 1,000 ML IV SCH ×2 (09:23→13:40)
[2024-04-04] MEDS: MELOXICAM 7.5 MG TAB PO PRN (09:23)
[2024-04-04] MEDS: ACETAMINOPHEN TAB 500 MG TAB PO PRN (09:23)
[2024-04-04] MEDS: ONDANSETRON 4 MG/2 ML VIAL IVP ONE (09:23)
[2024-04-04] MEDS: MIDAZOLAM 2 MG/2 ML VIAL IV ONE (09:47)
[2024-04-04] MEDS ORDERED: KETAMINE HCL IN 0.9 % NACL 50 MG/5 ML SYRINGE ONE (10:13)
[2024-04-04] MEDS ORDERED: ROPIVACAINE 5 MG/ML 30 ML VIAL ONE (10:13)
[2024-04-04] MEDS ORDERED: PROPOFOL 10 MG/ML 20 ML VIAL IV ONE (10:13)
[2024-04-04] MEDS ORDERED: TRANEXAMIC 1,000 MG/100ML-NACL PREMIX BAG ONE (10:13)
[2024-04-04] MEDS ORDERED: DEXAMETHASONE SOD PHOSPHATE 4 MG/ML 1 ML VIAL ONE (10:13)
[2024-04-04] MEDS ORDERED: PHENYLEPHRINE 10 MG/ML VIAL ONE (10:13)
[2024-04-04] MEDS ORDERED: MIDAZOLAM 2 MG/2 ML VIAL ONE (10:13)
[2024-04-04] MEDS ORDERED: ePHEDrine 50 MG/ML 1 ML VIAL ONE (10:13)
[2024-04-04] MEDS: ceFAZolin 1,000 MG in SODIUM CHLORIDE 0.9% 1,000 ML IRRIGATION ONE (10:18)
[2024-04-04] MEDS: LACTATED RINGERS 1,000 ML IV ONE (11:07)
[2024-04-04] MEDS ORDERED: ONDANSETRON 4 MG/2 ML VIAL IVP PRN (11:53)
[2024-04-04] MEDS ORDERED: HYDROcodone/APAP 5-325MG 1 EACH TAB PO PRN (11:53)
[2024-04-04] MEDS ORDERED: NALOXONE 0.4 MG/ML 1 ML VIAL IV PRN (11:53)
[2024-04-04] MEDS ORDERED: HYDROmorphone 0.5 MG/0.5 ML SYRINGE IVP PRN ×2 (11:53)
--- NOTE | 2024-04-04 11:53 | P.OP ---
Date of Procedure: 04/04/24 Preoperative Diagnosis: Left hip osteoarthritis Postoperative Diagnosis: Left hip osteoarthritis Procedure(s) Performed: Direct anterior left total hip arthroplasty Implants: 1. DePuy Corail size thirteen 125 degree with collared press-fit femoral stem 2. DePuy [place] 54 mm press-fit acetabular shell 3. DePuy [place] neutral polyethylene acetabular liner 54 mm OD 36 mm ID 4. Biolox delta ceramic femoral head 36 mm +1.5 Anesthesia: regional (Erector spinae block), spinal Surgeon: Marcell Mcintyre Dice Maker #1: Roberto Carlos Smith Estimated Blood Loss (ml): 45 Pathology: none sent Condition: stable Disposition: PACU Indications for Procedure: 78-year-old gentleman seen with symptomatic left hip osteoarthritis. After having treatment options discussed, he elected to proceed with direct anterior left total hip arthroplasty. Operative Findings: See description of procedure Description of Procedure: The patient was taken to the operative suite. Patient underwent a spinal anesthetic by the department of anesthesia. Patient was then transferred to the [place] table. Patient was given preoperative IV antibiotics and TXA. Both lower extremities were placed in standard leg spars. The hip was then prepped and draped in the normal sterile orthopedic fashion. A standard anterior incision was made beginning 3 cm lateral and 1 cm distal to the ASIS extending 10 cm. Dissection was then carried down through the subcutaneous soft tissues down to the fascia overlying the tensor fascia blair. An incision was now made through the fascia. Careful dissection was taken down exposing the tensor fascia blair muscle. A Cobra retractor was now placed along the medial femoral neck and a second one along the lateral femoral neck. The venous circumflex vessels were now identified, cauterized and clipped. We identified the anterior hip capsule. An incision was made through the hip capsule along the lateral border. I performed a partial anterior capsulectomy. Retractors were now placed around the femoral neck itself. A femoral neck cut was now made with a sagittal saw. It was completed with an osteotome at the lateral neck area. The femoral head was now removed without difficulty. The extremity was now rotated to 60 of external rotation. It was locked in position. Residual labrum was now debrided out. Serial reaming was performed of the acetabulum while Beni MERCADO assisted holding an anterior retractor for exposure. Once we reached the appropriate size and a trial was position and fit nicely. The appropriate size was now chosen opened and made available. It was introduced into the acetabulum without difficulty. The C-arm/fluoroscopy was now brought into the operative field. We made sure we had a true AP pelvic view. We now under direct C- arm/fluoroscopy introduced into the acetabular component with appropriate version and inclination. I held the cup in appropriate position well Beni MERCADO used a mallet to seat the acetabular component. I noted the component now to be well seated and stable. The polyethylene acetabular cup was placed in position. the C-arm was pulled back. An appropriate liner was introduced and clicked into position. It was felt to be stable. At this point retractors were removed. The extremity was now placed into 140 external rotation with no traction. The leg was now dropped to the ground and adducted. Appropriate retractors were now positioned along the proximal femur. We also placed our femoral look into position. Additional capsular releasing was performed to gain access to the proximal femur. We now used a box osteotome. A canal finder was now utilized. Serial broaching was now performed with the assistance of Beni MERCADO tapping the broaches down with a mallet while held the broach in appropriate rotation and position. This was done until we reached the appropriate size with good overall rotational stability. Appropriate calcar planing was performed. A trial head/neck was placed into position. The hip was now reduced. The C-arm/fluoroscopy was brought back into the operative field. I obtained an AP pelvis demonstrating adequate positioning of the trial components. The leg lengths look still off but we had started with about a 2 inch short right lower extremity and the reduction was quite tight. I did not feel I could get any more length at this point. The C-arm/fluoroscopy was pulled back. Retractors were repositioned and the hip was dislocated. The leg was again taken down to the ground and adducted. Appropriate retractors were repositioned as well as the femoral hook. All trial components were removed. The femoral implant was opened along with the femoral head. The femoral implant was introduced on the appropriate handle into our pre-broached area. I held the component position while Beni MERCADO used a mallet to seat the femoral component. The femoral component was now noted to be well seated and stable.. The femoral head was introduced with good positioning and fixation noted. Retractors were now removed. The hip was now reduced. There appeared be good positioning of the hip confirmed on intraoperative fluoroscopy. Spot films were obtained to document this. A second gram of TXA was given. Bipolar cautery had been utilized intermittently through the procedure for hemostasis. The wound was irrigated copiously with pulse lavage mechanical irrigation. The fascia was repaired with Vicryl suture. The subcutaneous soft tissues were repaired in layers with Vicryl suture. The skin was approximated with pernio/Dermabond. Sterile dressings were applied. Patient was then awakened, transferred to a bed and taken to recovery in stable condition. Beni MERCADO assisted with the complex procedure.
--- NOTE | 2024-04-04 12:08 | XR ---
EXAMINATION TYPE: XR Hip Limited RT, FL guidance operating room DATE OF EXAM: 04/04/2024 FLUOROSCOPY Rt Hip-Ant Dr. Mcintyre 14sec fluoro time .5245 DAP one AP image is submitted showing satisfactory alignment of the right hip total arthroplasty. [facility] Serg Lovett, Workstation: [email or web address], 04/04/2024 12:06 PM
[2024-04-04] MEDS: HYDROmorphone 0.5 MG/0.5 ML SYRINGE IVP PRN ×2 (12:24→19:49)
[2024-04-04] MEDS: HYDROcodone/APAP 7.5-325MG 1 EACH TAB PO PRN (15:25)
--- NOTE | 2024-04-04 21:12 | P.ANPRN ---
Procedure Note - Anesthesia - Nerve Block Performed Right Garry Single Time Out Performed: Yes Date of Procedure: 04/04/24 Procedure Start Time: 09:47 Procedure Stop Time: 09:51 Location of Patient: PreOp Indication: Acute Post-Operative Pain, Requested by Surgeon Sedation Type: Sedate with meaningful contact maintained Preparation: Sterile Prep Position: Supine Needle Types: Pajunk Needle Gauge: 21 Ultrasound used to visualize needle placement: Yes Ultrasound used to observe medication spread: Yes Blood Aspirated: No Pain Paresthesia on Injection Noted: No Resistance on Injection: Normal Image Stored and Saved: Yes Events: Uneventful and Well Tolerated (Ropivacaine 0.5% 20 cc plus dexamethasone 4 mg)
--- NOTE | 2024-04-04 21:39 | P.CONS ---
History of Present Illness - Reason for Consult Consult date: 04/04/24 Medical management Requesting physician: Marcell Mcintyre - History of Present Illness Patient is a very pleasant 78-year-old male with past medical history of A-fib on Eliquis, hypertension, faw-mavvzpe-hghrqepyh diabetes, and hyperlipidemia who is status post right total hip arthroplasty with Dr. Mcintyre. Sound physicians consulted for medical management. Patient states pain is well-controlled and is not having difficulty voiding. He states he has been passing flatus, but denies having any bowel movements at this time. Patient is also ambulating to the bathroom with a walker. He denies any headaches, nausea, vomiting, fevers or chills, chest pain, shortness of breath, palpitations, dizziness. Pertinent positives and negatives as discussed in HPI, a complete review of systems was performed and all other systems are negative. Patient seen and examined at bedside. Physical examination: Vital signs reviewed General: nontoxic, no distress, appears at stated age, resting comfortably in bed Derm: warm, dry, intact Head: atraumatic, normocephalic, symmetric Eyes: anicteric sclera Mouth: no lip lesion, mucus membranes moist Cardiovascular: S1 S2 reg, no murmur Lungs: CTA bilateral, no rhonchi, no rales, no accessory muscle use Abdominal: soft, non-tender to palpation, nondistended Extremities: No cyanosis, clubbing, or pedal edema. Neuro: Alert, Oriented to person, time and place, Gross neurological examination did not reveal any focal deficits. Cranial nerves II to XII grossly intact. Bilateral upper muscle strength intact and sensation intact. Left leg has 5 out of 5 muscle strength and sensation intact. Right leg has limited ROM at the hip due to pain, but strength 5 out of 5 and sensation intact from knee down to foot. Psych: well appearing, appropriate affect Assessment/Plan: Chronic conditions: Jyp-fxeafkn-eqydjuykn diabetes Hold sitagliptin Accu-Cheks per ACHS protocol Low insulin sliding scale Hypoglycemia precautions Hypertension Resume hydrochlorothiazide 25 mg daily A-fib, currently normal sinus Will hold Eliquis, pending primary team recommendation Resume diltiazem 180 mg daily Resume metoprolol 12.5 mg daily Hyperlipidemia Resume rosuvastatin 20 mg p.o. at bedtime Depression Resume Cymbalta 90 mg daily GERD Continue omeprazole 40 mg daily Insomnia Resume Trazodone 100mg PO HS Right hip osteoarthritis status post Right total hip arthroplasty POD #0 Pain control, Resumption of Eliquis, and DVT prophylaxis per primary surgery team Thank you for this consultation. Past Medical History Past Medical History: Atrial Fibrillation, Diabetes Mellitus, GERD/Reflux, Hyperlipidemia, Hypertension, Osteoarthritis (OA) Additional Past Medical History / Comment(s): chronic back pain History of Any Multi-Drug Resistant Organisms: None Reported Past Surgical History: Bowel Resection, Cholecystectomy Additional Past Surgical History / Comment(s): bowel resection and colostomy - since been reversed 2016; cataract surg Past Anesthesia/Blood Transfusion Reactions: No Reported Reaction Past Psychological History: No Psychological Hx Reported Smoking Status: Former smoker Past Alcohol Use History: Rare Additional Past Alcohol Use History / Comment(s): quit smoking 25-30 yrs ago; used to smoke less than one ppd x 10-15 yrs. Past Drug Use History: None Reported - Past Family History Father Family Medical History: No Reported History Mother Family Medical History: No Reported History Medications and Allergies Home Medications Medication Instructions Recorded Confirmed Type Omeprazole 20 mg PO HS 05/20/19 04/04/24 History dilTIAZem HCL [dilTIAZem HCL 24Hr 180 mg PO DAILY 05/20/19 04/04/24 History ER] hydroCHLOROthiazide [Hydrodiuril] 25 mg PO DAILY 05/20/19 04/04/24 History traZODone HCL 100 mg PO HS 05/20/19 04/04/24 History Hydrocodone/Acetaminophen [[place] 1 tab PO Q6HR PRN #10 tab 05/22/19 04/04/24 Rx 5-325] DULoxetine HCL [Cymbalta] 90 mg PO DAILY 12/26/23 04/04/24 History Omeprazole 40 mg PO DAILY 12/26/23 04/04/24 History Rosuvastatin Calcium 20 mg PO HS 12/26/23 04/04/24 History SITagliptin [Sitagliptin] 100 mg PO DAILY 12/26/23 04/04/24 History Apixaban [Eliquis] 5 mg PO BID 03/28/24 04/04/24 History Metoprolol Succinate (ER) [Toprol 12.5 mg PO DAILY 03/28/24 04/04/24 History Xl] Allergies Allergy/AdvReac Type Severity Reaction Status Date / Time nitroglycerin Allergy BP dropped Verified 04/04/24 08:51 Physical Exam Vitals: Vital Signs Temp Pulse Pulse Resp BP BP Pulse Ox 04/04/24 15:57 97.9 F 86 16 127/75 94 L 04/04/24 14:00 65 16 111/73 93 L 04/04/24 13:30 61 16 119/64 93 L 04/04/24 13:00 66 16 109/64 93 L 04/04/24 12:45 79 16 108/62 94 L 04/04/24 12:30 61 16 103/58 93 L 04/04/24 12:15 54 L 15 109/54 95 04/04/24 12:09 96.9 F L 58 L 15 97/52 95 04/04/24 09:55 64 17 107/90 98 04/04/24 08:45 97.4 F L 82 16 118/77 96 Intake and Output 04/04/24 04/04/24 04/04/24 06:59 14:59 22:59 Intake Total 2050 Output Total 40 2010 Intake: IV 2050 Output: Estimated Blood Loss 40 Other: Voiding Method Toilet # Voids 1 Weight 85 kg 85 kg Results Labs: Abnormal Lab Results - Last 24 Hours (Table) 04/04/24 Range/Units 09:11 POC Glucose (mg/dL) 153 H (70-110) mg/dL
[2024-04-04] MEDS: ASPIRIN 81 MG PO SCH (22:35)
[2024-04-04] MEDS: SENNOSIDES-DOCUSATE SODIUM 1 EACH TAB PO SCH (22:35)
[2024-04-04] MEDS: traZODone HCL 100 MG TAB PO SCH (23:58)
[2024-04-04] MEDS: ATORVASTATIN 40 MG TAB PO SCH (23:58)
[2024-04-05 06:51] LABS: Glucose,Whole Blood 157 mg/dL (70-110)
[2024-04-05 07:27] VITALS: BP 113/67; PULSE 76; RESP 18; TEMP 98.2
[2024-04-05 08:34] LABS: Basophils # (A) 0.02 X 10*3/uL (0.00-0.10); Basophils % (A) 0.2 %; Eosinophils # (A) 0.01 X 10*3/uL (0.04-0.35); Eosinophils % (A) 0.1 %; HCT 35.5 % (39.6-50.0); HGB 11.6 g/dL (13.0-17.0); Lymphocytes % (A) 9.1 %; MCH 30.3 pg (27.0-32.0); MCHC 32.7 g/dL (32.0-37.0); MCV 92.7 FL (80.0-97.0); Mean Platelet Volume 10.1 FL (9.5-12.2); Monocytes # (A) 1.48 X 10*3/uL (0.20-1.00); NRBC Per 100 WBC 0 X 10*3/uL (0.00-0.01); Neutrophils # (A) 7.44 X 10*3/uL (1.80-7.70); Neutrophils % (A) 75.3 %; Platelet Count 181 X 10*3/uL (140-440); RBC 3.83 X 10*6/uL (4.40-5.60); RDW 14.1 % (11.5-14.5); WBC 9.88 X 10*3/uL (4.50-10.00)
[2024-04-05] MEDS: FAMOTIDINE 20 MG TAB PO SCH (08:54)
[2024-04-05] MEDS: PANTOPRAZOLE 40 MG TABLET PO SCH (08:55)
[2024-04-05] MEDS: METOPROLOL SUCCINATE (ER) 25 MG TAB.ER.24H PO SCH (08:55)
[2024-04-05] MEDS: hydroCHLOROthiazide 25 MG TAB PO SCH (08:55)
[2024-04-05] MEDS: DULoxetine HCL 30 MG CAPSULE.DR PO SCH (08:55)
[2024-04-05] MEDS: DILTIAZEM CD 180 MG CAP.ER.24H PO SCH (08:55)
--- NOTE | 2024-04-05 09:08 | P.PN ---
Subjective Progress Note Date: 04/05/24 Principal diagnosis: Status post direct anterior right total hip arthroplasty Patient evaluated at bedside today, he is resting comfortably. Patient is ambulated well with a walker. He has been urinating with no issues. He is been tolerating a regular diet. He does admit to some anterior thigh pain this morning. He denies headaches, lightheadedness, chest pain or shortness of breath Objective - Vital Signs Vital signs: Vital Signs Temp 98.2 F 04/05/24 07:26 Pulse 76 04/05/24 07:26 Resp 18 04/05/24 07:26 BP 113/67 04/05/24 07:26 Pulse Ox 93 L 04/05/24 07:26 FiO2 Intake & Output 04/04/24 04/05/24 04/05/24 18:59 06:59 18:59 Intake Total 2050 Output Total 40 Balance 2010 Weight 85 kg Intake: IV 2050 Output: Estimated Blood Loss 40 Other: Voiding Method Toilet Toilet # Voids 1 2 - Exam Right lower extremity: Incision is clean, dry, and intact. The foam dressing is in good condition. There is minimal soft tissue swelling and ecchymosis surrounding the medial and lateral aspects of the incision. Calf is soft, no tenderness with palpation. Plantar flexion, dorsiflexion, EHL, FHL are intact. Sensory exam to light touch throughout the extremity is intact, dorsal pedis pulses 2+. - Labs CBC & Chem 7: 04/05/24 04:35 Labs: Abnormal Lab Results - Last 24 Hours (Table) 04/04/24 04/05/24 04/05/24 Range/Units 09:11 04:35 06:49 RBC 3.83 L (4.40-5.60) X 10*6/uL Hgb 11.6 L (13.0-17.0) g/dL Hct 35.5 L (39.6-50.0) % Monocytes # 1.48 H (0.20-1.00) X 10*3/uL Eosinophils # 0.01 L (0.04-0.35) X 10*3/uL POC Glucose (mg/dL) 153 H 157 H (70-110) mg/dL Assessment and Plan Assessment: Postoperative day #1 status post right direct anterior total hip arthroplasty Plan: Pain control, plan for discharge home on [place] 10 mg / 325 mg GI and DVT prophylaxis, patient will resume his normal oral anticoagulant starting on 04/06/2024. Patient also has stool softeners at home Wound care instructions were discussed, this to include bandaging along with icing and elevating and showering Home PT/nursing after discharge Weight-bear as tolerated with walker Medical recommendations appreciated Discharge planning: Patient stable for discharge home today Time with Patient: Less than 30
--- NOTE | 2024-04-05 09:11 | P.DS ---
Providers Date of admission: 04/04/2024 Expected date of discharge: 04/05/24 Attending physician: Marcell Mcintyre Consults: 04/04/24 11:53 Consult Physician Routine Consulting Provider: Karla Rojas Consult Reason/Comments: Medical management Do you want consulting provider notified?: Yes Primary care physician: [facility] Hospital Course: Date of admission: 04/04/2024 Date of discharge: 04/05/2024 Admission diagnosis: Status post direct anterior right total hip arthroplasty Discharge diagnosis: Same Attending physician: Dr. Mcintyre Surgical procedures: Direct anterior right total hip arthroplasty Brief history: Patient is a 78-year-old male with a history of progressive primary right hip osteoarthritis. At this point patient has failed conservative treatment measures and has opted to proceed with a elective direct anterior right total hip arthroplasty. Hospital course: Details of patient's surgery can be found in operative report. Patient tolerated the procedure well and was subsequently transported to orthopedic floor. Patient's orthopeidc and medical care was provided daily. Patient had daily laboratory tests performed for evaluation of overall blood counts. Patient had daily physical therapy to include strengthening range of motion as well as education with walker ambulation. Patient was treated with aspirin for their postoperative DVT prophylaxis during their inpatient stay. Patient was noted to have a relatively uneventful postoperative course. Patient reported satisfactory pain control with oral pain medications by postoperative day 0. Patient showed satisfactory progress with physical therapy. Patient moved steadily through the program and had no difficulty meeting the goals by postoperative day 1. Given patient's otherwise satisfactory course and having met physical therapy goals, plan is to discharge patient home on postoperative day 1. Discharge condition/disposition: Patient will be discharged home in stable condition. Discharge medications: Instructions are given on resumption of patient's normal daily medications per primary care recommendation, in addition patient will be prescribed [place] 10 mg / 325 mg. Discharge instructions: 1. Wound care and infection precautions, keep incision dry and covered while showering, no lotions, creams, moisturizers. No soaking, tubs, pools, hottubs. Do not scrub over the incision. 2. Weight-bear as tolerated with walker / cane until follow-up. 3. Ice and elevate when necessary. Do not exceed 20 minutes per hour with ice pack. 4. Utilize compression sleeve until seen at first follow up appointment. 5. Visiting nursing care. 6. Home physical therap. 7. Pain meds and anticoagulants per prescription. 8. Pain medication has potential to cause constipation. Increase oral fluid and fiber intake. Contact primary care provider if you have not had a bowel movement within 48 hours after discharge 9. No anti-inflammatory medication until discussed at first post operative visit, this including Motrin, Aleve, Mobic, Diclofenac. 10. Follow up in office at 2 weeks postop with Beni Smith PA-C/Mandeep Sanders 11. Follow up with your primary care doctor 7-10 days after discharge. 12. Contact [facility] with any questions, . Procedures: Direct anterior right total hip arthroplasty Patient Condition at Discharge: Good Plan - Discharge Summary Discharge Rx Participant: Yes New Discharge Prescriptions: New HYDROcodone/APAP 10-325MG [[place] 10-325] 1 tab PO Q6HR PRN 7 Days #28 tab PRN Reason: Pain No Action traZODone HCL 100 mg PO HS Omeprazole 20 mg PO HS hydroCHLOROthiazide [Hydrodiuril] 25 mg PO DAILY dilTIAZem HCL [dilTIAZem HCL 24Hr ER] 180 mg PO DAILY Hydrocodone/Acetaminophen [[place] 5-325] 1 tab PO Q6HR PRN #10 tab PRN Reason: Pain Rosuvastatin Calcium 20 mg PO HS Omeprazole 40 mg PO DAILY DULoxetine HCL [Cymbalta] 90 mg PO DAILY Metoprolol Succinate (ER) [Toprol Xl] 12.5 mg PO DAILY Apixaban [Eliquis] 5 mg PO BID SITagliptin [Sitagliptin] 100 mg PO DAILY Discharge Medication List Omeprazole 20 mg PO HS 05/20/19 [History] dilTIAZem HCL [dilTIAZem HCL 24Hr ER] 180 mg PO DAILY 05/20/19 [History] hydroCHLOROthiazide [Hydrodiuril] 25 mg PO DAILY 05/20/19 [History] traZODone HCL 100 mg PO HS 05/20/19 [History] Hydrocodone/Acetaminophen [[place] 5-325] 1 tab PO Q6HR PRN #10 tab 05/22/19 [Rx] DULoxetine HCL [Cymbalta] 90 mg PO DAILY 12/26/23 [History] Omeprazole 40 mg PO DAILY 12/26/23 [History] Rosuvastatin Calcium 20 mg PO HS 12/26/23 [History] SITagliptin [Sitagliptin] 100 mg PO DAILY 12/26/23 [History] Apixaban [Eliquis] 5 mg PO BID 03/28/24 [History] Metoprolol Succinate (ER) [Toprol Xl] 12.5 mg PO DAILY 03/28/24 [History] HYDROcodone/APAP 10-325MG [[place] 10-325] 1 tab PO Q6HR PRN 7 Days #28 tab 04/05/24 [Rx] Follow up Appointment(s)/Referral(s): Roberto Carlos Smith PAC [PHYSICIAN GEOGRAPHIC ANALYST] - 2 Weeks Activity/Diet/Wound Care/Special Instructions: Orthopedic Discharge Instructions: 1. Wound care and infection precautions, keep incision dry and covered while showering, no lotions, creams, moisturizers. No soaking, pools, hot tubs. Do not scrub over incision. 2. Weight-bear as tolerated with walker / cane until follow-up. 3. Ice and elevate when necessary. Do not exceed 20 minutes per hour with ice pack. 4. Utilize compression sleeve until seen at first follow up appointment. 5. Pain meds and anticoagulants per prescription. 6. Pain medication has potential to cause constipation. Increase oral fluid and fiber intake. Contact primary care provider if you have not had a bowel movement within 48 hours after discharge. 7. No anti-inflammatory medication until discussed at first post operative visit, this including Motrin, Aleve, Mobic, Diclofenac. 8. Follow up in office at 2 weeks postop with Beni Smith PA-C/Mandeep Mueller PA-C 9. Follow up with your primary care doctor 7-10 days after discharge. 10. Contact [facility] with any questions, . Wound care instructions: 1. Okay to remove surgical dressing as of 04/14/2024 2. After removal of dressing, okay to shower directly over the incision Discharge Disposition: HOME WITH HOME HEALTH SERVICES
[2024-04-05 11:27] LABS: Glucose,Whole Blood 170 mg/dL (70-110)
[2024-04-05] MEDS: INSULIN ASPART (NovoLOG) 100 UNIT/ML VIAL SQ SCH (12:15)
[2024-04-05] MEDS: MULTIVITAMINS, THERA 1 EACH TAB PO SCH (12:15)
--- NOTE | 2024-04-05 16:13 | P.PN ---
Subjective Progress Note Date: 04/05/24 Hospital course: Patient is a pleasant 78-year-old male with a past medical history of atrial fibrillation on anticoagulation with Eliquis, hypertension, [id number] diabetes mellitus, and hyperlipidemia. He is currently admitted under orthopedic surgery team and is status post elective right total hip arthroplasty. Surgical procedure was completed by Dr. Mcintyre secondary to right hip osteoarthritis. We were consulted for medical management throughout hospitalization. Physical exam: Patient seen and fully evaluated at bedside. He was sitting up in the chair and currently reports feeling great. Patient states postoperative pain in right hip currently 3 out of 10 at this time. He denies having any numbness or tingling in extremity. He denies having any headache, lightheadedness, dizziness, chest pain, palpitations, shortness of breath, cough or congestion, experiencing postoperative nausea or vomiting. He reports urinating without any difficulties. Vital signs reviewed and stable. General: Nontoxic, no distress and appears stated age. Derm: Skin warm and dry, normal coloration for ethnicity. Head: Atraumatic, normocephalic and symmetric. Eyes: EOM's intact, no lid lag, and anicteric sclera Mouth: no lip lesions, mucus membranes moist Cardiovascular: regular rate and rhythm with normal S1S2, no murmur, positive posterior tibial pulses bilaterally, and cap refill < 2 seconds. Lungs: Respirations even, regular, and unlabored on room air. Lungs CTA bilaterally, no rhonchi, no rales, no wheezing, and no accessory muscle usage. Abdominal: soft, nontender to palpation, no guarding, no appreciable organomegaly Ext: ROM intact. No gross muscle atrophy, no edema, no contractures Neuro: Speech clear, face symmetrical and CN II-XII grossly intact with no noted focal neuro deficits Psych: Alert and oriented to person, place, time, and situation. Appropriate and pleasant affect. Assessment and Plan of Care: Status post left total hip arthroplasty Management per primary admitting orthopedic surgery team including DVT prophylaxis, pain management, wound/dressing management, weightbearing, and PT/OT. Currently on DVT prophylaxis with aspirin 81 mg twice daily and per orthopedic surgery team patient may resume Eliquis 5 mg twice daily starting tomorrow morning. Acute postoperative blood loss anemia This is a stable and expected finding. Preoperative hemoglobin was 15.1 and postoperative hemoglobin of 11.6. No need for transfusion or further intervention at this time. No active bleeding noted. Paroxysmal atrial fibrillation May resume Eliquis 5 mg twice daily starting tomorrow morning and to continue diltiazem HCl 180 mg daily and metoprolol 12.5 mg daily. Ylf-podhoap-kclinlqdi diabetes mellitus type 2 Continue glycemic protocol with NovoLog sliding scale and resume sitagliptin 100 mg daily on discharge. Hyperlipidemia Continue rosuvastatin 20 mg nightly. Data reviewed: Postoperative labs reviewed. CBC showing postoperative blood loss anemia with hemoglobin of 11.6 and preoperative hemoglobin of 15.1. Blood glucose 157. Vital signs reviewed. Blood pressure 113/67, heart rate 76, respiratory rate 18, temp 98.2 F, and SpO2 of 93% on room air. Thank you for allowing us to participate in the care of this pleasant patient. Do not hesitate to contact us with questions. Someone can be reached from the [facility] hospitalist group all hours of the day at [phone] or via perfect serve. Patient was seen independently by Nurse Pracitioner. This document was prepared using [place] dictation software. Please allow for errors in cut and cover line worker, while rare they do occur. Messi You NP rendered care for this patient independently, reviewed the findings and plan as documented in the note above and agree with plan. I did not physically speak with or examine the patient on this date. Objective - Vital Signs Vital signs: Vital Signs Temp 98.2 F 04/05/24 07:26 Pulse 76 04/05/24 07:26 Resp 18 04/05/24 07:26 BP 113/67 04/05/24 07:26 Pulse Ox 93 L 04/05/24 07:26 FiO2 Intake & Output 04/04/24 04/05/24 04/05/24 18:59 06:59 18:59 Intake Total 2050 Output Total 40 Balance 2010 Weight 85 kg Intake: IV 2050 Output: Estimated Blood Loss 40 Other: Voiding Method Toilet Toilet # Voids 1 2 - Labs CBC & Chem 7: 04/05/24 04:35 Labs: Abnormal Lab Results - Last 24 Hours (Table) 04/05/24 04/05/24 Range/Units 04:35 06:49 RBC 3.83 L (4.40-5.60) X 10*6/uL Hgb 11.6 L (13.0-17.0) g/dL Hct 35.5 L (39.6-50.0) % Monocytes # 1.48 H (0.20-1.00) X 10*3/uL Eosinophils # 0.01 L (0.04-0.35) X 10*3/uL POC Glucose (mg/dL) 157 H (70-110) mg/dL
== END 2024-04-05 12:53 | disposition home health service (06) ==
LOC: OR 08:15 → 4SSUR 12:03 → OR 04-05 12:53
PROVIDERS: ATTEND Orthopaedic Surgery
DX: M16.11 Unilateral primary osteoarthritis, right hip (principal); G89.18 Other acute postprocedural pain; D62 Acute posthemorrhagic anemia; I48.0 Paroxysmal atrial fibrillation; I10 Essential (primary) hypertension; E11.9 Type 2 diabetes mellitus without complications; E78.5 Hyperlipidemia, unspecified; K21.9 Gastro-esophageal reflux disease without esophagitis; G47.00 Insomnia, unspecified; F32.A Depression, unspecified; Z79.84 Long term (current) use of oral hypoglycemic drugs; Z79.01 Long term (current) use of anticoagulants; Z79.899 Other long term (current) drug therapy; Z87.891 Personal history of nicotine dependence; Z88.8 Allergy status to other drugs, medicaments and biological substances
CPT/HCPCS: 27130; 97161; 64999; 85025; 73501; C1776; J2250; J1100; J0690 ×3; J2405; J2795; J2704; J1171; J2371